=== PATIENT | female | born 1990 | race Caucasian/White ===

== ENCOUNTER 2021-01-23 09:37 | Outpatient (RCR) | payer OTHER, SELFPAY ==
--- NOTE | ~2021-01-23 | US_ITS ---
EXAMINATION: US OB follow up EXAM DATE: 01/23/2021 11:12 INDICATION: 40 weeks gestation/ BELIA and estimated weight. 3rd trimester. TECHNIQUE: Pelvic obstetrical transabdominal sonogram was performed by a technologist. There are mu ltiple grayscale and Doppler images available for interpretation. There are no earlier studies of is gestation for comparison. FINDINGS: There is a single fetus identified in vertex presentation with a heart rate of 131 beats pe r minute. The placenta is located in the fundal position. There is no sonographic evidence of retrop lacental hemorrhage identified. The amniotic fluid index is 14.2 centimeters, which is normal. BIOMETRIC DATA: Biparietal diameter (BPD): 9.1 cm ----------------> 36 weeks 6 days. Head circumference (HC): 34.8 cm ----------------> 40 weeks 3 days. Abdominal circumference (AC): 35.1 cm ----------> 39 weeks 0 days. Femur length (FL): 7.9 cm --------------------------> 40 weeks 1 day. These measurements are concordant. HC/AC ratio is 0.99 (The 5th -- 95th percentile range is 0.7-1.06. Estimated weight is 3695 g +/- 554 g. This is the 57th percentile when the currently reported clinical gestation age 40 weeks 0 days, clinical estimated date of delivery (BLANCA-OPE) 01/23 is used. estimated gestational age based on measurements from this exam is 39 weeks 1 day, with an estim ated date of delivery (BLANCA-AUA) 01/29. IMPRESSION: 1. Single fetus in vertex presentation with heart rate 131 beats per minute. 2. Estimated weight of 3695 grams, 57th percentile using the currently reported clinical gesta tion age of 40 weeks 0 days, BLANCA(OPE) 01/23. 3. Normal BELIA 14.2 cm. Reviewed, dictated and finalized at location B. [facility] IMPRESSION: 1. Single fetus in vertex presentation with heart rate 131 beats per minute. 2. Estimated weight of 3695 grams, 57th percentile using the currently r eported clinical gestation age of 40 weeks 0 days, BLANCA(OPE) 01/23. 3. Normal BELIA 14.2 cm.
[2021-01-23 10:34] VITALS: BP 118/79; PULSE 91
== END 2021-03-20 09:35 | disposition home or self-care (01) ==
LOC: ANHOBOP 09:37
PROVIDERS: Visit Provider Obstetrics & Gynecology
DX: O48.0 Post-term pregnancy (principal); Z3A.40 40 weeks gestation of pregnancy
CPT/HCPCS: 59025; 76816

== ENCOUNTER 2021-02-04 05:03 | Inpatient (IN) | payer OTHER, SELFPAY ==
[2021-02-04] VITALS (176 sets, daily range): BP systolic 69–145; BP diastolic 15–93; PULSE 61–142; RESP 18; TEMP 36.3–38.2; O2SAT 96–100; BMI 30.6
--- NOTE | 2021-02-04 05:03 | LDADM ---
This patient, Annabel Rider, was admitted to Labor/Delivery/Recovery 107 on 02/04/21 at 05:03. Plans for labor, pain management and were discussed with patient. Patient/family oriented to hospital policies and general routines including ID bracelet, bed and alarms, visiting hours, pain management, procedures, bathroom and other care routines, personal items, smoking policy, room service/diet and guest tray routines, security routines, and visiting hours. Patient/Family are encouraged to report perceived risks to care and to ask questions if they do not understand what they are told or what they should do. See OBIX for further documentation.
[2021-02-04] MEDS: AMPICILLIN 2 GM/NS 100 ML 2 GM/100 ML BAG IVPB (05:52)
[2021-02-04] MEDS: OXYTOCIN 30 UNITS/NS 500 ML 30 UNITS/500 ML BAG IV CONT (05:53)
[2021-02-04] MEDS: LACTATED RINGERS 1,000 ML 125 ML IV CONT ×4 (05:53→22:19)
[2021-02-04 05:54] LABS: Basophils Percent Auto 0.4 % (0.2-1.2); Eosinophils Absolute Auto 0.2 K/mm3 (0-0.3); Eosinophils Percent Auto 1.5 % (0-4.4); Hematocrit 38.1 % (37.0-47.0); Hemoglobin 13.5 g/dL (12.0-15.0); Immature Granulocyte Absolute 0.03 K/mm3 (0.00-0.031); Immature Granulocyte Percent A 0.3 % (0-0.5); Immature Platelet Fraction Pct 8.2 % (0.9-11.2); Lymphocytes Absolute Auto 2.24 K/mm3 (0.9-3.2); Lymphocytes Percent Auto 22.5 % (18.3-44.2); Mean Corpuscular HGB Conc 35.4 g/dl (32-36); Mean Corpuscular Hemoglobin 33.9 pg (26-34); Mean Corpuscular Volume 95.7 fl (80-100); Monocytes Absolute Auto 0.7 K/mm3 (0.1-0.6); Monocytes Percent Auto 7.1 % (2.6-8.5); Neutrophils Absolute Auto 6.8 K/mm3 (1.3-6.7); Neutrophils Percent Auto 68.2 % (45.5-73.1); Platelet Count Result 119 k/mm3 (150-375); Red Blood Count 3.98 M/mm3 (4.2-5.4); Red Cell Distribution Width 13.7 % (11.5-14.5); White Blood Count 9.9 K/mm3 (4.5-10.0)
[2021-02-04 08:38] LABS: Rapid Plasma Reagin Non-Reactive (NonReactive)
--- NOTE | 2021-02-04 08:45 | PM.IMHP ---
H&P: HPI History of Present Illness Date/Time: 02/04/21 0845 30 y/o at 41 5/7 weeks here for induction of labor. GBS pos. Chief Complaint: Here for labor induction Review of Systems Review of Systems: All systems reviewed & are unremarkable except as noted in HPI and below PMFSH Past Medical History Medical History (Updated 02/04/21 @ 11:54 by Jared Abbasi MD) Hypothyroidism Surgical History Surgical History History of appendectomy Family History Family History Other Acute myocardial infarction Diabetes mellitus Social History Social History Smoking status: Never smoker Second hand tobacco smoke exposure: No Alcohol intake: current Substance use: never Spiritual care concerns: No Meds Home Medications and Allergies Home Medications Medication Instructions Recorded Confirmed Type PNV cmb#95-ferrous fumarate-FA 1 tablet PO DAILY 12/25/20 12/25/20 History [] levothyroxine 75 mcg PO DAILY 12/25/20 12/25/20 History Allergies Allergy/AdvReac Type Severity Reaction Status Date / Time No Known Allergies Allergy Verified 12/25/20 12:37 Vital Signs Vital Signs - 24 hr 02/04/21 05:25 02/04/21 05:30 02/04/21 06:30 Temperature 36.3 C L Pulse Rate 121 H 118 H Blood Pressure 108/81 108/82 02/04/21 06:39 02/04/21 07:01 02/04/21 07:31 Temperature Pulse Rate 92 80 82 Blood Pressure 124/78 122/75 98/57 L 02/04/21 08:01 02/04/21 08:30 02/04/21 08:31 Temperature 36.6 C Pulse Rate 91 77 Blood Pressure 98/58 L 123/87 02/04/21 09:01 02/04/21 09:31 02/04/21 09:53 Temperature Pulse Rate 88 77 74 Blood Pressure 118/80 117/77 116/74 02/04/21 10:16 02/04/21 10:30 02/04/21 10:31 Temperature 36.5 C Pulse Rate 98 86 Blood Pressure 104/77 115/81 02/04/21 10:46 02/04/21 11:01 02/04/21 11:16 Temperature Pulse Rate 75 95 93 Blood Pressure 119/82 114/85 115/77 02/04/21 11:31 02/04/21 11:33 Temperature Pulse Rate 109 H 96 Blood Pressure 112/15 L 122/85 Exam Const: Orientation/consciousness: patient oriented x3 Other: Well-developed, well-nourished female in no acute distress. Neck: Thyroid: thyroid normal Lymphatic: no lymphadenopathy noted (in neck, axilla or inguinal nodes) Resp: Effort & Inspection: normal respiratory effort Auscultation: clear to auscultation bilaterally Cardio: Rate: regular rate Rhythm: regular rhythm Heart sounds: S1 normal heart sound present and S2 normal heart sound present GI: Other: ABD: Soft, nontender, gravid,vertex. NST reactive. TOCO: contractions every 3-5 min : General: Yes no CVA tenderness Other: Cervix 3/50/-2. AROM with meconium-stained fluid. Vertex. Back/Spine/Pelvis: Back: no CVA tenderness Skin: General skin exam: normal color and no rashes or lesions noted Neuro: General: patient oriented x3 Extrem: Other: Extremities: nontender with trace edema Psych: Mental Status: mental status grossly normal Affect: normal affect H&P: Results Labs Labs: Short CBC 02/04/21 Range/Units 05:47 WBC 9.9 (4.5-10.0) K/mm3 Hgb 13.5 (12.0-15.0) g/dL Hct 38.1 (37.0-47.0) % Plt Count 119 L (150-375) k/mm3 Assessment and Plan Assessment and plan (1) Term : Code(s): Z34.90 - Encounter for supervision of normal , unspecified, unspecified trimester Status: Acute Assessment and Plan: A: IUP at 41 5/7 weeks here for induction of labor. GBS pos. P: Oxytocin. Ampicillin. Anticipate . (2) GBS (group B Streptococcus carrier), +RV culture, currently : Code(s): O99.820 - Streptococcus B carrier state complicating Status: Acute
[2021-02-04] MEDS: AMPICILLIN 1 GM/NS 50 ML 1 GM/50 ML BAG IVPB ×4 (09:52→22:17)
--- NOTE | 2021-02-04 14:59 | WPDANESEPP ---
Anes - Eval Pre Procedure Procedure: labor epidural Date/Time: 02/04/21 14:59 Pre Op Diagnosis: Induction Patient Data Age: 30 Gender: F Height: 1.57 m Weight: 76 kg Last Vital Signs Temp 36.5 C 02/04/21 10:30 Pulse 87 02/04/21 14:37 BP 126/68 02/04/21 14:37 Allergies Allergy/AdvReac Type Severity Reaction Status Date / Time No Known Allergies Allergy Verified 12/25/20 12:37 Home Medications Medication Instructions Recorded Confirmed Type PNV cmb#95-ferrous fumarate-FA 1 tablet PO DAILY 12/25/20 12/25/20 History [] levothyroxine 75 mcg PO DAILY 12/25/20 12/25/20 History Laboratory Tests 02/04/21 02/04/21 02/04/21 05:47 05:47 05:47 WBC 9.9 K/mm3 K/mm3 (4.5-10.0) RBC 3.98 M/mm3 L M/mm3 (4.2-5.4) Hgb 13.5 g/dL g/dL (12.0-15.0) Hct 38.1 % % (37.0-47.0) MCV 95.7 fl fl (80-100) MCH 33.9 pg pg (26-34) MCHC 35.4 g/dl g/dl (32-36) RDW 13.7 % % (11.5-14.5) Plt Count 119 k/mm3 L k/mm3 (150-375) MPV 12.0 fl H fl (7.4-10.4) Immature Gran % (Auto) 0.3 % % (0-0.5) Neut % (Auto) 68.2 % % (45.5-73.1) Lymph % (Auto) 22.5 % % (18.3-44.2) [place] % (Auto) 7.1 % % (2.6-8.5) Eos % (Auto) 1.5 % % (0-4.4) Baso % (Auto) 0.4 % % (0.2-1.2) Lymph # (Auto) 2.24 K/mm3 K/mm3 (0.9-3.2) [place] # (Auto) 0.7 K/mm3 H K/mm3 (0.1-0.6) Eos # (Auto) 0.2 K/mm3 K/mm3 (0-0.3) Baso # (Auto) 0.0 K/mm3 K/mm3 (0.0-0.1) Abs Immat Gran (auto) 0.03 K/mm3 K/mm3 (0.00-0.031) Absolute Neuts (auto) 6.8 K/mm3 H K/mm3 (1.3-6.7) Absolute Nucleated RBC 0.0 K/mm3 K/mm3 (0.0-0.012) Nucleated RBC % 0.0 % % (0.0-0.2) % Immature Plt Fraction 8.2 % % (0.9-11.2) RPR Non-reactive (NonReactive) Blood Type O Positive Antibody Screen Negative Patient hx anesthesia problems: none Family hx anesthesia problems: none Results Review: All pre-operative results and documents have been reviewed as part of the pre-operative evaluation. [facility] Past Medical History Medical History Hypothyroidism Surgical History Surgical History History of appendectomy Family History Family History Other Acute myocardial infarction Diabetes mellitus Social History Social History Smoking status: Never smoker Second hand tobacco smoke exposure: No Alcohol intake: current Substance use: never Spiritual care concerns: No Exam Day of Procedure 02/04/21 14:59 Patient weight: obese Heart: regular rate and rhythm Lungs: normal air movement Airway: Mallampati scale Neurological: alert and oriented
--- NOTE | 2021-02-04 16:46 | PM.OBPNLAB ---
Pain Control Date/time seen: 02/04/21 16:46 Comments: Now comfortable with epidural. Pelvic Exam Dilation (cm): 5 Effacement (%): 80 station: -1 Comments: IUPC placed Contractions Contraction frequency: 3 Contraction pattern: Regular Status status: Category l Assessment and Plan Plan: continuous present management
[2021-02-04] MEDS: SODIUM CHLORIDE 0.9% IV 300 ML 600 ML I-UTERINE (21:43)
[2021-02-05] VITALS (89 sets, daily range): BP systolic 93–135; BP diastolic 57–97; PULSE 50–159; RESP 14–20; TEMP 36.2–37; O2SAT 94–100
[2021-02-05] MEDS: LACTATED RINGERS 1,000 ML 125 ML IV CONT ×3 (00:54→03:30)
[2021-02-05] MEDS: ONDANSETRON INJ 4 MG/2 ML VIAL IV PUSH ×2 (01:27→04:16)
--- NOTE | 2021-02-05 02:15 | PM.OBPNLAB ---
Pain Control Date/time seen: 02/05/21 02:15 Comments: Still comfortable. Had a FHR deceleration lasting 6-7 min with good recovery, subsequently reactive. On my arrival, as I entered the room, another FHR deceleration to 70s occurred lasting another 7 min, has recovered. Thick meconium noted. Temp 100.7, has defervesced. Urine output about 250 mL over 8 hours. Pelvic Exam Dilation (cm): 9 Effacement (%): 100 station: 0 Contractions Contraction pattern: Irregular Status status: Category ll Assessment and Plan Comments: After FHR recovered, will try a few pushes to see if we can effect dilation / descent. If not, may proceed to . Reviewed plan in detail with patient and her partner, and they agree.
--- NOTE | 2021-02-05 02:44 | PM.OBPNLAB ---
Pain Control Date/time seen: 02/05/21 02:44 Comments: Tried pushing, but no change in dilation and no descent of head. FHR deceleration after a push. Pelvic Exam Dilation (cm): 9 Effacement (%): 100 station: 0 Contractions Contraction frequency: 3 Contraction pattern: Irregular Status status: Category ll Assessment and Plan Comments: A: Nonreassuring heart rate tracing in labor. P: Offered primary delivery. She understands risks of surgery to include risks of anesthesia, risks of pain, infection, bleeding, blood products, thromboembolic phenomena and damage to adjacent structures such as bowel, bladder, ureters, blood vessels and nerves. She understands all these risks and elects to proceed with surgery.
--- NOTE | 2021-02-05 04:11 | PM.OBPRVD ---
OB - Delivery Note Procedure Delivery date: 02/05/21 Procedure: Procedures Operation Date: 02/05/21 03:00 Actual Procedure Side Surgeon p Section Jared Abbasi MD Induction method: per pitocin protocol Delivery augmentation: rupture of membranes Delivery monitor: external FHT, external uterine, internal FHT and internal uterine Route of delivery: (Primary LTCS) Indication for instrumentation: nonreassuring FHR tracing Specimen: Yes (cord blood, placenta) Quantitative Blood Loss (ml): 900 Anesthesia type: Epidural Disposition: PACU Complications: None Narrative: The patient was taken to the operating room where she was prepared and draped in the usual sterile fashion in dorsal supine position with a leftward tilt. She received cefazolin preoperatively. Spinal anesthesia was found to be adequate. A Pfannenstiel skin incision was made and carried through to the underlying layer of the fascia. The fascia was incised in the midline and the incision was extended laterally. The fascia was dissected free of the underlying rectus muscles. The rectus muscles were in the midline. The peritoneum was identified, tented up and entered sharply. The peritoneal incision was extended superiorly and inferiorly with good visualization of the bladder. The bladder blade was placed. The vesicouterine peritoneum was identified, tented up and entered sharply. The incision was extended laterally and the bladder flap was developed. The bladder blade was replaced. The uterus was then incised sharply in a transverse fashion along the lower uterine segment. The incision was extended laterally. The infant's head was delivered atraumatically to the sterile field, followed by the body. The nose and mouth were bulb suctioned. The cord was clamped and cut. The infant was handed off the field. Cord blood was collected. The placenta was removed manually and was passed off the field. The uterus was exteriorized and cleared of all clots and debris. The uterine incision was reapproximated using 0 Monocryl in a running, locked fashion. A second, imbricating layer of the same suture was placed. She was given methergine 0.2 mg IM x 1 dose, and uterine atony resolved. Excellent hemostasis resulted as did excellent reapproximation of the normal anatomy. The uterus was returned the abdomen. The pelvis was irrigated copiously with warmed normal saline. Rigorous hemostasis was assured. The fascial layer was reapproximated using 0 Vicryl in a running fashion. The skin was closed with a running, subcuticular stitch of 4 0 Vicryl. Dermaflex was applied externally. Sponge, lap, needle and instrument counts were correct. The patient was taken to the recovery room in stable condition. The infant went to the nursery in stable condition. I was present and scrubbed the entire procedure. [place] [facility] Date of : 02/05/21 Time of : 03:28 Weeks of gestation at delivery: 41 gender: Male Weight (pounds): 9 presentation: vertex Placenta delivery description: Manual Removal and Normal Configuration cord vessel description: 3 Vessels score one minute: 9 score five minutes: 9
--- NOTE | 2021-02-05 04:13 | PM.OBDSVD ---
DS: Admitting Diagnosis Discharge Date 02/07/21 Admitting Diagnosis IUP at 41 5/7 weeks GBS colonization DS: Discharge Diagnosis Discharge Diagnosis (1) delivery delivered: Code(s): O82 - Encounter for delivery without indication Status: Acute (2) GBS (group B Streptococcus carrier), +RV culture, currently : Code(s): O99.820 - Streptococcus B carrier state complicating Status: Acute OB - DS: Summary OB Procedures : None OB Procedures Intrapartum: OB Procedures: : None Peripartum Data Procedures: Procedures Operation Date: 02/05/21 03:00 Actual Procedure Side Surgeon p Section Jared Abbasi MD DS: Data Data Completed and Pending Labs on day of discharge: Labs from last 24 hours 02/04/21 02/04/21 02/04/21 05:47 05:47 05:47 WBC 9.9 RBC 3.98 L Hgb 13.5 Hct 38.1 MCV 95.7 MCH 33.9 MCHC 35.4 RDW 13.7 Plt Count 119 L MPV 12.0 H Immature Gran % (Auto) 0.3 Neut % (Auto) 68.2 Lymph % (Auto) 22.5 [place] % (Auto) 7.1 Eos % (Auto) 1.5 Baso % (Auto) 0.4 Lymph # (Auto) 2.24 [place] # (Auto) 0.7 H Eos # (Auto) 0.2 Baso # (Auto) 0.0 Abs Immat Gran (auto) 0.03 Absolute Neuts (auto) 6.8 H Absolute Nucleated RBC 0.0 Nucleated RBC % 0.0 % Immature Plt Fraction 8.2 RPR Non-reactive Blood Type O Positive Antibody Screen Negative Discharge Plan Discharge Attending physician on discharge: Jared Abbasi Discharging Clinician: Jared Abbasi Patient Disposition: Home, Self-Care Activity: may shower, may drive after 2 weeks and no preference Diet: regular Wound Care Instructions: incision open to air Discharge Instructions: Education: Mom and Baby Guide Given to: Mother Follow-Up: Call your delivering provider's office for an appointment to be seen in: 4 Weeks Mom and baby should come to [facility] for the follow-up appointment. Appointment Date/Time: Saturday, February 08, 2021 at 10:00 a.m. What to expect at your follow-up visit: Blood Pressure Check Physical Assessment Call [phone] if you are unable to keep your appointment time. BREAST CARE: * Wear a snug supportive bra. * For engorgement discomfort: Breast Feeding: * Apply warm moist washcloths * Express milk as needed to relieve engorgement * Wear loose clothing * For sore nipples: * Identify correct latch-on * Apply warm moist washcloths before and after nursing * Air dry nipples after nursing * May apply Lansinoh cream to nipples ABDOMINAL INCISION: (if applicable) * Allow incision to air dry * Do NOT use lotions for powders on your incision * When showering, allow soap and water to run over the incision, but do not wash incision EPISIOTOMY/PERINEAL CARE: * Change your pad frequently throughout the day * You may take sitz baths several times a day (fill your bathtub with warm water and soak for 20 minutes.) Do NOT bathe in the water * No tub baths until seen by your physician - You may shower ACTIVITY: * Rest as much as possible. * Do not exercise or lift anything heavier than your baby (such as laundry or other children.) * Avoid stairs or driving as much as possible. * Do not put anything into the vagina. No douching, tampons, or sexual activity until seen by physician. NOTIFY PHYSICIAN IF YOU HAVE ANY QUESTIONS OR IF ANY OF THE FOLLOWING SYMPTOMS OCCUR: * If your incision becomes red, swollen, or more painful than what you have experienced in the hospital. * If your vaginal bleeding becomes foul smelling. * If your vaginal bleeding becomes more heavy than a period or if your bleeding changes from pink to bright red. However, you may pass an occasional walnut-sized clot once or twice for the first week .
[2021-02-05] MEDS: OXYTOCIN 30 UNITS/NS 500 ML 30 UNITS/500 ML BAG 125 UNITS IV CONT (05:21)
--- NOTE | 2021-02-05 07:10 | OBPPTRN ---
Patient transferred to post room # 292 via stretcher accompanied by spouse. Support person present. Oriented to unit, room, information board, rooming in, admission packet and security measures. Patient verbalizes understanding. PT and spouse both received instructions and education this shift via one to one discussion, mom baby care guide and demonstrations. No barriers to learning identified at this time. Welcome packet reviewed and discussed.
--- NOTE | 2021-02-05 08:35 | PC.NURSE ---
Primary RN called out to assist with feeding. is able to freely thrust tongue past gum ridge and flange both lips. Skin is intact on both nipples, no redness and bruising noted. Mother is feeling better this day and has been most of the night. RN has latched. Reviewed infant feeding cues, frequencies, duration of feedings, feeding elimination flow sheet, and signs of adequate intake. Reviewed positioning/alignment in cross cradle, holding breast in ?U? hold and guided asymmetrical latch on. Reviewed rational for each. Infant was latched correctly within a few attempts. nursed eagerly with steady draws and occasional swallowing noted,followed with long pausing. Mother reports infant is sleepy this feeding and has been more eager with nursing other feedings. Reviewed signs of a correct latch, effective nursing and suck swallow ratio. Suggested mother stimulate while feeding to increase stimulation for milk supply, for increased intake and to assist with maintaining deep latch. would slip to shallow latch causing tenderness. Demonstrated how to adjust latch more deeply while feeding as needed. Mother reports she can feel the difference in latch with less tenderness. Nipple care reviewed of lanolin after feedings, warm compresses as needed. Instructed mother to call out for RN assistance if she is unable to latch for feeding or she has discomfort with nursing. Instructed feeding should be initiated three hours from start of last feeding or if feeding cues are noted before. Mother voiced understanding of information shared.
--- NOTE | 2021-02-05 08:40 | PC.NURSE ---
Primary RN called out to assist with feeding. RN has latched. Reviewed feeding cues, frequencies, duration of feedings, feeding elimination flow sheet, and signs of adequate intake. Reviewed positioning/alignment in cross cradle, holding breast in ?U? hold and guided asymmetrical latch on. Reviewed rational for each. was latched correctly within a few attempts. nursed eagerly with steady draws and occasional swallowing noted,followed with long pausing. Mother reports is sleepy this feeding and has been more eager with nursing other feedings. Reviewed signs of a correct latch, effective nursing and suck swallow ratio. Suggested mother stimulate while feeding to increase stimulation for milk supply, for increased intake and to assist with maintaining deep latch. Infant would slip to shallow latch causing tenderness. Demonstrated how to adjust latch more deeply while feeding as needed. Mother reports she can feel the difference in latch with less tenderness. Nipple care reviewed of lanolin after feedings, warm compresses as needed. Instructed mother to call out for RN assistance if she is unable to latch for feeding or she has discomfort with nursing. Instructed feeding should be initiated three hours from start of last feeding or if feeding cues are noted before. Mother voiced understanding of information shared.
[2021-02-05] MEDS: DEXTROSE 5%/0.45% SOD CHL 1,000 ML 125 ML IV CONT (10:24)
[2021-02-05] MEDS: LANOLIN (LANSINOH) 7.5 GM CREAM 1 APPLIC TOPICAL (10:27)
[2021-02-05] MEDS: SIMETHICONE 80 MG TAB.CHEW PO ×2 (10:30→17:34)
[2021-02-05] MEDS: KETOROLAC 30 MG/ML VIAL (*BKC) IV PUSH ×2 (10:32→17:34)
[2021-02-05] MEDS: LEVOTHYROXINE SODIUM 75 MCG TABLET PO (10:33)
--- NOTE | 2021-02-05 11:35 | PC.NURSE ---
Mother called out for assist with feeding, due to C/S. Primary RN called out to assist with feeding. Assisted with infant to breast. Reviewed positioning/alignment in cross cradle, holding breast in ?U? hold and guided asymmetrical latch on. Reviewed rational for each. latch correctly within a few attempts. nursed eagerly with steady draws and occasional swallowing noted,followed with long pausing. Mother reports infant is sleepy this feeding and has been more eager with nursing other feedings. Reviewed signs of a correct latch, effective nursing and suck swallow ratio. Suggested mother stimulate while feeding to increase stimulation for milk supply, for increased intake and to assist with maintaining deep latch. would slip to shallow latch causing tenderness. Demonstrated how to adjust latch more deeply while feeding as needed. Mother reports she can feel the difference in latch with less tenderness. Nipple care reviewed of lanolin after feedings, warm compresses as needed. Instructed mother to call out for RN assistance if she is unable to latch infant for feeding or she has discomfort with nursing. Instructed feeding should be initiated three hours from start of last feeding or if feeding cues are noted before. Mother voiced understanding of information shared.
[2021-02-05] MEDS: KCL 20 MEQ/D5/0.45% SOD CHL 1,000 ML 125 ML IV CONT (16:55)
[2021-02-05] MEDS: DOCUSATE SODIUM 100 MG CAPSULE PO (17:34)
[2021-02-06] VITALS: BP 100/62; PULSE 73; RESP 18; TEMP 36.9
[2021-02-06] MEDS: LEVOTHYROXINE SODIUM 75 MCG TABLET PO (05:08)
[2021-02-06] MEDS: IBUPROFEN 600 MG TABLET PO ×4 (05:08→23:34)
[2021-02-06 05:38] LABS: Basophils Absolute Auto 0.1 K/mm3 (0.0-0.1); Basophils Percent Auto 0.4 % (0.2-1.2); Eosinophils Absolute Auto 0.1 K/mm3 (0-0.3); Eosinophils Percent Auto 0.5 % (0-4.4); Hematocrit 29.9 % (37.0-47.0); Hemoglobin 10.2 g/dL (12.0-15.0); Immature Granulocyte Absolute 0.12 K/mm3 (0.00-0.031); Immature Granulocyte Percent A 0.6 % (0-0.5); Immature Platelet Fraction Pct 9.8 % (0.9-11.2); Lymphocytes Absolute Auto 1.95 K/mm3 (0.9-3.2); Lymphocytes Percent Auto 9.9 % (18.3-44.2); Mean Corpuscular HGB Conc 34.1 g/dl (32-36); Mean Corpuscular Hemoglobin 34.1 pg (26-34); Mean Platelet Volume 11.7 fl (7.4-10.4); Monocytes Absolute Auto 1.1 K/mm3 (0.1-0.6); Monocytes Percent Auto 5.7 % (2.6-8.5); Neutrophils Absolute Auto 16.3 K/mm3 (1.3-6.7); Neutrophils Percent Auto 82.9 % (45.5-73.1); Platelet Count Result 135 k/mm3 (150-375); Red Blood Count 2.99 M/mm3 (4.2-5.4); Red Cell Distribution Width 14.6 % (11.5-14.5); White Blood Count 19.6 K/mm3 (4.5-10.0)
--- NOTE | 2021-02-06 07:35 | PC.NURSE ---
PT introductions made and plan of care discussed per post op c section, pain management, breast feeding, daily care activities. Patient verbalizes understanding. PT and spouse both received instructions and education this shift via one to one discussion, mom baby care guide and demonstrations. No barriers to learning identified at this time.
[2021-02-06 08:05] VITALS: BP 96/56; PULSE 73; RESP 16; TEMP 36.3; O2SAT 99
--- NOTE | 2021-02-06 08:45 | PM.OBPNVD ---
OB - PN: Subj Subjective Date/time seen: 02/06/21 08:45 Narrative: Pain OK. Tolerating diet. Would like circumcision for son. OB - PN: Obj Data Labs CBC & Chem 7: 02/06/21 03:33 Labs: Laboratory Results - last 24 hr 02/06/21 03:33 WBC 19.6 H RBC 2.99 L Hgb 10.2 L D Hct 29.9 L MCV 100.0 MCH 34.1 H MCHC 34.1 RDW 14.6 H Plt Count 135 L MPV 11.7 H Immature Gran % (Auto) 0.6 H Neut % (Auto) 82.9 H Lymph % (Auto) 9.9 L [place] % (Auto) 5.7 Eos % (Auto) 0.5 Baso % (Auto) 0.4 Lymph # (Auto) 1.95 [place] # (Auto) 1.1 H Eos # (Auto) 0.1 Baso # (Auto) 0.1 Abs Immat Gran (auto) 0.12 H Absolute Neuts (auto) 16.3 H Absolute Nucleated RBC 0.0 Nucleated RBC % 0.0 % Immature Plt Fraction 9.8 OB - PN A/P Plan Comments: A: POD#1, doing well. P: Routine care. Reviewed circ. Exam Narrative: AVSS I/O OK ABD soft, nontender, fundus firm. Incision c/d/i. EXT nontender
[2021-02-06] MEDS: DOCUSATE SODIUM 100 MG CAPSULE PO ×2 (11:41→17:13)
[2021-02-06] MEDS: ACETAMINOPHEN 325 MG TABLET 650 MG PO (11:41)
[2021-02-06 11:42] VITALS: PULSE 73; RESP 16; O2SAT 99
[2021-02-06] MEDS: MULTIVIT/MIN/PREN/FOL AC/IRON TABLET 1 TAB PO (11:42)
[2021-02-06] MEDS: SIMETHICONE 80 MG TAB.CHEW PO (11:42)
--- NOTE | 2021-02-06 12:52 | WPDANLDPN2 ---
Anes-Prog Note L&D Date/Time: 02/06/21 12:52 Comfortable throughout: labor and section Neuraxial method: epidural Epidural/Spinal procedure site: clean & non-tender Neuro status: Neuro function grossly intact. Cardiovascular status: normal Respiratory status: normal Airway patency: baseline Mental status: baseline Post-Op hydration status: normal Vital Signs: Last Vital Signs Temp 97.4 F L 02/06/21 08:05 Pulse 73 02/06/21 08:05 Resp 16 02/06/21 08:05 BP 96/56 L 02/06/21 08:05 Pulse Ox 99 02/06/21 08:05 Pain score (VAS): 0 I/O: Intake & Output 02/05/21 02/06/21 02/06/21 23:59 07:59 15:59 Intake Total 1000 1000 Output Total 550 Balance 450 1000 Post-procedural complaints: none Patient feedback: Patient satisfied with anesthetic care.
--- NOTE | 2021-02-06 12:54 | WPDANLDNPN2 ---
Anes-Prog Note L&D-Neuraxial Date/Time: 02/06/21 12:54 Neuraxial medications: epidural PF morphine Opiod-related complaints: none Patient feedback: Patient satisfied with post-operative pain management.
--- NOTE | 2021-02-06 15:15 | PC.NURSE ---
Mother called out for assist with feeding, reporting slight tenderness with feeding. Infant is able to freely thrust tongue past gum ridge and flange both lips. Skin is intact on both nipples, no redness and bruising noted. Reviewed infant feeding cues, frequencies, duration of feedings, feeding elimination flow sheet, and signs of adequate intake. Demonstrated stimulation techniques to wake for feeding. Assisted with infant to breast. Reviewed positioning/alignment in cross cradle, holding breast in ?U? hold and guided asymmetrical latch on. Reviewed rational for each. able to latch correctly within a few attempts. nursed eagerly with steady draws and occasional swallowing noted, some pausing noted. Reviewed signs of a correct latch, effective nursing and suck swallow ratio. Suggested mother stimulate while feeding to increase stimulation for milk supply, for increased intake and to assist with maintaining deep latch. would slip to shallow latch causing tenderness. Demonstrated how to adjust latch more deeply while feeding as needed. Mother reports she can feel the difference in latch with no tenderness. Nipple care reviewed of lanolin after feedings, warm compresses as needed. Instructed mother to call out for RN assistance if she is unable to latch infant for feeding or she has discomfort with nursing. Instructed feeding should be initiated three hours from start of last feeding or if feeding cues are noted before. Mother voiced understanding of information shared.
[2021-02-06 21:00] VITALS: BP 115/63; PULSE 84; RESP 18; TEMP 36.6
[2021-02-07] MEDS: LEVOTHYROXINE SODIUM 75 MCG TABLET PO (05:32)
[2021-02-07 08:00] VITALS: PULSE 87; RESP 18; O2SAT 99
[2021-02-07 08:30] VITALS: BP 103/58; PULSE 87; RESP 18; TEMP 36.5; O2SAT 99
--- NOTE | 2021-02-07 10:00 | PC.NURSE ---
Consult with pt., observed mother is able to independently latch with appropriate positioning/alignment. Infant eagerly latches on first attempt with long rhythmical draws and frequent swallowing noted. She denies any nipple discomfort, is feeding as required and waking infant to feed if needed. Infant has had at least 8 effective feedings in the past 24 hours, and is currently meeting outcomes for weight, jaundice and feeding frequencies. has minimum for output at this time. Advise parents to keep accurate records of all feeding/elimination. Mother states she feels confident to continue effective at home. Reviewed transition to breast milk, signs of adequate intake, and engorgement/relief. Instructed to call ICP if intake/output less than required. Reviewed regular medications mother is taking. Information provided per Nadia. Reviewed community resources on the [facility] website and in the Mom/Baby guide. Information on outpatient services provided. Mother has no further questions at this time. Instructed feeding should be initiated three hours from start of last feeding or if feeding cues are noted before until seen by ICP. Mother voiced understanding of information shared.
[2021-02-07] MEDS: MULTIVIT/MIN/PREN/FOL AC/IRON TABLET 1 TAB PO (10:46)
[2021-02-07] MEDS: DOCUSATE SODIUM 100 MG CAPSULE PO (10:46)
[2021-02-07] MEDS: IBUPROFEN 600 MG TABLET PO (10:47)
--- NOTE | 2021-02-07 13:25 | PC.NURSE ---
Primary RN notified LC of infant has not had a stool for over 24 hours and now has dry lips. to parents to discuss infant status and discuss supplementation after breastfeedings until milk is in. Assured mother infant has a good latch and is effectively feeding. Mother does not feel breast changes as if her milk is coming in. Parents are willing to supplement after each feeding. Feeding plan discussed, Feeding Plan is for mother to put infant to breast each feeding for up to 15 minutes, then pace feed supplement 25-30 mls and pump for 5-10 minutes. Discussed increasing supplementation as infant requires to satisfactions. Reviewed paced feeding and suggested to stop when infant is satisfied, as long as infant is having required output. With increased supplementation infant may not want to feed for 4 hours. Mother will continue to pump on infant feeding schedule and will increase session to 20 minutes if pumping every 4 hours. Advised not to discontinue supplement until a pre/post feeding evaluation by infant PCP, Follow up RN or LC is completed. Mother states she feels confident to continue feeding plan at home. Reviewed transition to breast milk, signs of adequate intake, and engorgement/relief. Instructed to call ICP if intake/output less than required. Reviewed regular medications mother is taking. Information provided per Nadia. Reviewed community resources on the [facility] website and in the Mom/Baby guide. Information on outpatient services provided. Mother has no further questions at this time.
--- NOTE | 2021-02-07 14:30 | PC.NURSE ---
Patient viewed the discharge video Mother & Baby Care, The First Two Weeks . Patient was given the opportunity and encouraged to ask questions. Patient verbalized understanding of information shared and has been given the mother/baby guide for home reference.
[2021-02-08 09:48] VITALS: BP 122/79; PULSE 66; RESP 20; TEMP 37.2; O2SAT 100
== END 2021-02-07 16:41 | disposition home or self-care (01) | DRG 788 ==
LOC: ANHLDR 02-05 04:14 → ANHOB2 02-07 14:34 → ANHLDR 02-10 10:31 → ANHOB2 02-10 10:31
PROVIDERS: Admitting Provider Obstetrics & Gynecology; Visit Provider Student in an Organized Health Care Education/Training Program
PROC: 10D00Z1 Extraction of Products of Conception, Low, Open Approach (ICD-10-PCS; CPT 59514; principal; 2021-02-05 03:00)
DX: O75.2 Pyrexia during labor, not elsewhere classified (principal); O99.824 Streptococcus B carrier state complicating childbirth; O76 Abnormality in fetal heart rate and rhythm complicating labor and delivery; O77.0 Labor and delivery complicated by meconium in amniotic fluid; O99.284 Endocrine, nutritional and metabolic diseases complicating childbirth; E03.9 Hypothyroidism, unspecified; O42.92 Full-term premature rupture of membranes, unspecified as to length of time between rupture and onset of labor; Z3A.41 41 weeks gestation of pregnancy; Z37.0 Single live birth
CPT/HCPCS: 36415; 85025; 85055; 86592; 86850; 86900; 86901; 88307; A9270; J0131; J0290; J1200; J1885; J2210; J2274; J2405; J2590; J2795; J3480; J7030; J7120

== ENCOUNTER 2021-02-13 10:54 | Outpatient (RCR) | payer OTHER, SELFPAY ==
--- NOTE | 2021-02-13 14:27 | PC.NURSE ---
IN 1010 [id number] HISTORY: Pt. delivered at [facility] at 39 weeks. had no complications after delivery. Mother had no complications after delivery. Mother and discharged ,on a feeding plan with pumping and supplementation after each feeding due to ineffective feeding. is now 8 days old. appears to be well cared for. Infant last seen/will be seen by ICP on at 1 week. Mother reports: Infant supplemented on discharge for ineffective feeding and 8% weight loss. Mother states infant is now eagerly feeding and gaining weight. Mother is putting to one breast and offering supplement. Mother will pump 40-50mls after most feedings. Mother is unsure how and when to discontinue supplementation. Currently at 8 wets per day and 3-4 yellow seedy stools per day. weight: 9#0 Last Weight: 9#1 at ICP Mother wishes: To discontinue supplementation and pumping. OBSERVATION: Pre feeding weight: 4211 Post feeding weight: 4281 Tongue is able to move tongue freely past gum ridge, both lips flange easily. Mother has everted nipples with skin intact no redness, blisters, scabbing or abrasions noted. Observed mother is able to independently latch with appropriate positioning/alignment. Infant was able to latch correctly. nursed eagerly, with steady draws and frequent swallowing noted. Reviewed signs of a correct latch, effective nursing and suck swallow ratio. Infant was able to maintain latch without discomfort to mother. Advised to allow infant to empty first breast, then stimulate and offer second breast each feeding. Reviewed to stimulate while at breast to keep awake and effectively feeding. After feeding infant was satisfied sleepy with no feeding cues noted. Pre and post weights, indicate infant had adequate amounts to discontinue supplementation. Suggested mother now pump for comfort after feedings to decrease excess milk supply. Mother will follow above feeding plan and call with any questions.
== END 2021-03-20 12:40 | disposition home or self-care (01) ==
LOC: ANHOBOP 10:54
PROVIDERS: Visit Provider Pediatrics
DX: Z39.1 Encounter for care and examination of lactating mother (principal)
CPT/HCPCS: 99212; G0463

== ENCOUNTER 2021-11-18 17:45 | Emergency (ER) | payer BC, SELFPAY ==
[2021-11-18 17:53] VITALS: PULSE 101; RESP 16; TEMP 36.8; O2SAT 100
--- NOTE | 2021-11-18 18:22 | ED.URI ---
HPI - URI/Sore Throat General Chief Complaint: Upper Respiratory Infection Stated Complaint: cough, sore throat Time Seen by Provider: 11/18/21 18:22 Source: patient, RN notes reviewed and old records reviewed Mode of arrival: ambulatory Limitations: no limitations History of Present Illness HPI Narrative: 31-year-old female presents to the [facility] with a cough and sore throat last 2 and half weeks. Patient states throat is gotten better. Cough is been progressive and not getting any better even with home treatment. Denies any fevers. No nausea vomiting or diarrhea. Denies chest pain or shortness of breath Related Data Home Medications Medication Instructions Recorded Confirmed levothyroxine 75 mcg tablet 75 mcg PO DAILY 12/25/20 12/25/20 vit no.95-ferrous 1 tablet PO DAILY 12/25/20 12/25/20 fumarate 28 mg-folic acid 800 mcg tablet () Allergies Allergy/AdvReac Type Severity Reaction Status Date / Time No Known Allergies Allergy Verified 12/25/20 12:37 Review of Systems Review of Systems: All systems reviewed & are unremarkable except as noted in HPI and below Constitutional: Constitutional: Reports no additional constitutional complaints, Denies chills and Denies fever(s) Eyes: Eyes: Reports no additional eye complaints ENT: Reports as per HPI and Reports sore throat Cardiovascular: Cardiovascular: Reports no additional cardiovascular complaints Respiratory: Respiratory: Reports as per HPI, Denies chest congestion, Reports cough, Denies dyspnea and Denies wheezing Gastrointestinal: Gastrointestinal: Reports no additional gastrointestinal complaints Musculoskeletal: Musculoskeletal: Reports no additional musculoskeletal complaints Integumentary/Breasts: Skin/Breast: Reports system reviewed and no additional complaints, except as docu Neurologic: Reports system reviewed and no additional complaints, except as documented Psychiatric: Psychiatric: Reports no additional psychiatric complaints Allergic/Immunologic: Allergic/Immunologic: Reports no additional allergic/immunologic complaints [facility] Past Medical History Medical History Hypothyroidism 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 There is no relevant family history pertinent to the patient complaint. Exam Const: General: healthy appearing, no acute distress and alert Nutritional Appearance: well nourished Orientation/consciousness: patient oriented x3 Limitations: no limitations HENMT: Head: normal to inspection Ears: external ears normal, TM's normal bilaterally and EAC's normal General nose exam: Normal external nose present, Normal nares present, Abnormal mucous membranes and turbinates present boggy; not erythematous and Nasal discharge present clear Face and sinus: normal facial exam, face symmetric, no ecchymosis and no erythema Mouth: Yes Normal oral and palatal mucosa present, Yes lip normal and Yes moist mucous membranes Throat: uvula midline and postnasal drainage Eyes: General: appearance normal, both eyes and all related structures Pupils: Equal, round and reactive pupils present Neck: Neck: normal visual inspection, no lymphadenopathy and no meningeal signs Chest: Chest palpation & inspection: normal inspection of the chest Resp: Effort & I
[2021-11-18 18:25] VITALS: BP 126/78
== END 2021-11-18 18:40 | disposition home or self-care (01) ==
PROVIDERS: Emergency Provider Nurse Practitioner
DX: J32.9 Chronic sinusitis, unspecified (principal); E03.9 Hypothyroidism, unspecified
CPT/HCPCS: 99213; G0463

== ENCOUNTER 2022-02-12 16:06 | Outpatient (CLI) | payer BC, SELFPAY ==
[2022-02-12 19:46] LABS: Appearance Urine Clear (Clear); Bilirubin Urine Negative (Negative); Blood Urine Trace-intact (Negative); Color Urine Yellow (Yellow); Glucose Urine UA Negative (Negative); Ketones Urine Negative (Negative); Leukocyte Esterase Ur 3+ LEU/UL (Negative); Nitrate Urine Negative (Negative); Protein Urine Negative (Negative); Urobilinogen Urine 0.2 mg/dL (<2.0)
[2022-02-12 19:53] LABS: Add Urine Microscopic? YES; Bacteria Urine Trace /hpf; Mucus Urine Rare /lpf; Squamous Epithelial Cell Urine Many /hpf (Few); WBC Urine 31-50 /hpf
== END 2022-02-12 16:07 | disposition home or self-care (01) ==
LOC: ANHGOSHLAB 16:07
PROVIDERS: PCP Emergency Medicine; Visit Provider Emergency Medicine
DX: N39.0 Urinary tract infection, site not specified (principal)
CPT/HCPCS: 81001; 87086; 87088; 87147

== ENCOUNTER 2024-02-13 09:39 | Emergency (ER) | payer BC, SELFPAY ==
--- NOTE | ~2024-02-13 | XR_ITS ---
EXAMINATION: XR chest 2V DATE: 02/13/2024 10:16 INDICATION: Cough. TECHNIQUE: Frontal and lateral views of the chest were obtained. COMPARISON: None. FINDINGS: There is no pneumonia, pleural effusion, or pneumothorax. The heart size is normal. IMPRESSION: 1. No acute cardiopulmonary disease. Reviewed, dictated and finalized at location A. [facility]
[2024-02-13 09:52] VITALS: BP 112/73; PULSE 116; RESP 16; TEMP 36.3; O2SAT 100
--- NOTE | 2024-02-13 10:00 | ED.URI ---
HPI - URI/Sore Throat General Chief Complaint: Upper Respiratory Infection Stated Complaint: Cough Time Seen by Provider: 02/13/24 10:00 Source: patient Mode of arrival: ambulatory Limitations: no limitations History of Present Illness HPI Narrative: 33-year-old female presented for complaint of nasal congestion and cough for over 1 week. Patient was prescribed augmentin by her PCP 2 days ago, but is concerned the cough is ?violent. ? She denies associated shortness of breath, wheezing, nausea, vomiting, diarrhea, or lethargy. Patient is scheduled for IV of transfer this week, and is taking 10 mg prednisone b.i.d.. Related Data Home Medications Medication Instructions Recorded Confirmed levothyroxine 75 mcg tablet 75 mcg PO DAILY 12/25/20 02/13/24 vit no.95-ferrous 1 tablet PO DAILY 12/25/20 02/13/24 fumarate 28 mg-folic acid 800 mcg tablet () etonogestrel 0.12 mg-ethinyl 1 vag ring vaginal ONCE 12/19/21 02/13/24 estradiol 0.015 mg/24 hr vaginal ring (EluRyng) inebilizumab-cdon 10 mg/mL 300 mg IV [id number] 12/19/21 02/13/24 intravenous solution (Uplizna) prednisone 10 mg tablet 10 mg PO BID 02/13/24 02/13/24 Allergies Allergy/AdvReac Type Severity Reaction Status Date / Time No Known Allergies Allergy Verified 02/13/24 10:06 Review of Systems Review of Systems: CONSTITUTIONAL: Denies body aches, fever, chills, or sweats. EYES: Denies visual changes, redness, or discharge. ENT: reports rhinorrhea, congestion, denies sore throat, or otalgia. CARDIOVASCULAR: Denies chest pain, palpitations, or edema. RESPIRATORY: Reports cough, denies sob, wheezing. GASTROINTESTINAL: Denies abdominal pain, nausea, vomiting, or diarrhea. MUSCULOSKELETAL: Denies back pain, joint pain, or myalgia. 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 Please see nursing chart for further information. There is no relevant family history pertinent to the presenting complaint Exam Narrative: GENERAL: Well-appearing, in no acute distress. EYES: EOMI. No redness or drainage. Conjunctivae normal. ENT: Mucous membranes pink and moist. No rhinorrhea. TMs normal bilaterally. Throat normal. Uvula midline. CHEST: No respiratory distress. lungs clear to all [place]. HEART: Regular rate and rhythm. No murmur appreciated. ABDOMEN: Soft, nontender, nondistended, normal active bowel sounds. SKIN: Warm, dry, no rash. Capillary refill normal. Normal skin turgor. NEURO: Alert and oriented x3. Gait steady. PSYCH: Normal affect. Course Course Emergency Course: Patient is aware of diagnosis, understands and agrees to treatment plan. Anticipatory guidance given. Patient agrees to follow-up as directed and is aware of reasons to seek care at the emergency department. Portions of this record may have been created with voice recognition software Level of Care: Express Care Visit Vital Signs Vital signs: Vital Signs Temperature 97.3 F L 02/13/24 09:52 Pulse Rate 116 H 02/13/24 09:52 Respiratory Rate 16 02/13/24 09:52 Blood Pressure 112/73 02/13/24 09:52 Pulse Oximetry 100 02/13/24 09:52 Temperature 97.3 F L 02/13/24 09:52 Pulse Rate 116 H 02/13/24 09:52 Respiratory Rate 16 02/13/24 09:52 Blood Pressure 112/73 02/13/24 09:52 Pulse Oximetry 100 02/13/24 09:52 MDM - URI/Sore Throat MDM Narrative Medical decision making narrative: Discussed physical exam findings and CXR. Pt scheduled for IVF transfer this week. Advised supportive measures and signs/symptoms to go to the ER. Pt is appropriate for outpt treatment and f/u. Differential Diagnosis Differential diagnosis: Likely upper respiratory infection, sinusitis, viral infection and bronchitis Imaging Data Radiologist's impression: Patient: Annabel Rdier : 1990 MR#: [id number] Age: 33 Acct:[id number] Loc: [id number] ADM Date: 02/13/24Attending Dr: Ordering Physician: Any Bush APRN Date of Service: 02/13/24 Procedure(s): XR chest 2V Accession Number(s): [id number] cc: Cece Arreguin APRN; Any Bush APRN~ EXAMINATION: XR chest 2V DATE: 02/13/2024 10:16 INDICATION: Cough. TECHNIQUE: Frontal and lateral views of the chest were obtained. COMPARISON: None. FINDINGS: There is no pneumonia, pleural effusion, or pneumothorax. The heart size is normal. IMPRESSION: 1. No acute cardiopulmonary disease. Discharge Plan Discharge Clinical Impression: Bronchitis Patient Disposition: Home, Self-Care Condition: Stable Instructions: Acute Bronchitis (ED) Additional Instructions: Acute bronchitis can be contagious because it is usually caused by infection with a virus or bacteria. It is usually for a few days but you can be contagious for up to one week. Avoid crowds until you do not have a fever and symptoms are improved Take medication as previously directed Recommend Flonase spray and Zyrtec (or Claritin/Gracia) over the counter Cough syrup may cause drowsiness; avoid driving or take it at night time. Tylenol 1000mg every 8 hours as needed for pain Symptomatic treatment includes: rest, fluids, and increase humidity of the air at home. Follow up with your primary care provider as needed in 1 week Go to the ER for worsening symptoms or concerns Prescriptions: New benzonatate 200 mg capsule 200 mg PO TID PRN (Reason: cough) Qty: 20 0RF No Action loratadine 10 mg tablet 10 mg PO DAILY Qty: 30 0RF prednisone 10 mg tablet 10 mg PO BID etonogestrel-ethinyl estradiol [EluRyng] 0.12-0.015 mg/24 hr ring 1 vag ring vaginal ONCE Uplizna 10 mg/mL solution 300 mg IV [id number] Rx Instructions: administer over 90 mins levothyroxine 75 mcg Tablet 75 mcg PO DAILY PNV cmb#95-ferrous fumarate-FA [] 28 mg iron- 800 mcg Tablet 1 tablet PO DAILY fluticasone propionate [Flonase Allergy Relief] 50 mcg/actuation spray,suspension 2 spray intranasal DAILY Qty: 16 0RF Rx Instructions: administer into each nostril amoxicillin-pot clavulanate 875-125 mg tablet 1 tablet PO BID Qty: 20 0RF Follow-up/Referrals: Cece Arreguin, [employer] [Primary Care Provider] -
== END 2024-02-13 10:32 | disposition home or self-care (01) ==
PROVIDERS: Emergency Provider Nurse Practitioner Family; PCP Nurse Practitioner Family
DX: J40 Bronchitis, not specified as acute or chronic (principal)
CPT/HCPCS: 71046; 99213; G0463